=== PATIENT | female | born 1945 | race Caucasian/White ===

== ENCOUNTER → 2016-11-30 | Day surgery (SDC) | payer MEDICARE ==
[2016-07-26 11:45] VITALS: BP 103/58
[~2016-11-30] MED LIST: CHOL100014 PO; FERR325T58 PO; FURO20TA3 PO; HYDROmorphone 2 MG/ML VIAL IV PRN; IV RINGERS,LACTATED 1000ML 1,000 ML IV SCH; LACT10SO35 PO; LIDOCAINE 1% 1 ML SYRINGE. ID PRN; MORPHINE SULFATE 2 MG/ML DISP.SYRIN. IV PRN; MULT1TAB52 PO; OMEP40CA5; ONDANSETRON PF 4 MG/2 ML VIAL. IV PRN; POTA20TA4 PO; PROCHLORPERAZINE 10 MG/2 ML VIAL. IV PRN; SPIR25TA3 PO; SUCR1TAB; VITA100022 PO; fentaNYL PF VIAL 100 MCG/2 ML VIAL IV PRN
--- NOTE | 2016-11-30 10:30 | PDOC1 ---
HISTORY & PHYSICAL H&P Dahiana Cortez 1945 11/23/2016 02:50 PM 08/15 [employer] [facility] OUR PATIENTS COME FIRST [address] [place] [address] Ph. [phone] Patient: Dahiana Cortez Date of : 1945 Date: 11/23/2016 2:50 PM Visit Type: Office Visit This 71 year old female presents for Esophageal Ulcers. History of Present Illness: 1. Esophageal Ulcers Patient is here for followup for esophagal ulcers and duodenal ulcers. No complain. Has been taking medication regularly. No nausea or vomiting. No melena. INTAKE COMMENTS: Intake Comments: Nurse Note: the pt is here today for a follow-up for Esophageal ulcers, her last EGD was in July 2016. PROBLEM LIST: Problem Description Onset Date Chronic Notes Cirrhosis of liver 04/04/2014 Y Bilateral edema of lower extremity 04/01/2016 PAST MEDICAL/SURGICAL HISTORY (Detailed) Disease/disorder Onset Date Management Date Comments kne replacement hysterectomy EGD 04/07/2015 cirrhosis of liver rheumatic fever, childhood DIAGNOSTICS HISTORY: Test Ordered Interpretation Result completed EGD 02/17/2015 abnormal Imp: No evidence of any significant variceal dilation at present. Reflux esophagitis. Mild portal hypertensive gastropathy. 04/07/2015 EGD 04/01/2016 abnormal Imp: Schatzki's ring. Small hiatal hernia. Somewhat prominent esophageal venous structure not quite clinically evident varices at present. 04/12/[address] WITH Contrast 07/15/2016 abnormal Imp: Small bilateral pleural effusions. Mild volume loss at the left lung base likely reflects atelectasis. Pneumonia is not entirely excluded but is felt less likely. Cholelithiasis. 02/2016 EGD 07/15/2016 abnormal Imp: Non-Bleeding esophageal ulcers. LA grade C reflux esophagitis. Gastritis(bx). One non-bleeding duodenal ulcer with no stigmata of bleeding. BX: Chronic gastritis, mild. 07/26/2016 Test Ordered Ordering Comments Modifier EGD 02/17/2015 EGD 04/01/[address] WITH Contrast 07/15/2016 EGD 07/15/2016 Medications (Active): Started Medication Directions Instruction Stopped 11/23/2016 Aldactone 100 mg tablet take 1 tablet by ORAL route every day 10/19/2016 lactulose 20 gram/30 mL oral solution take 30 milliliter by oral route 3 times every day 11/23/2016 Lasix 20 mg tablet TAKE ONE TABLET BY MOUTH ONCE DAILY 11/23/2016 omeprazole 40 mg capsule,delayed release take 1 capsule by oral route every day before a meal 11/23/2016 sucralfate 1 gram tablet take 1 tablet by oral route 2 times every day on an empty stomach 1 hour before meals and at bedtime Allergies: Ingredient Reaction Medication Name Comment PENICILLINS REVIEW OF SYSTEMS System Neg/Pos Details Constitutional Negative Chills, fever, malaise and weight loss. ENMT Negative Sore throat. Eyes Negative Double vision. Respiratory Negative Dyspnea and wheezing. Cardio Negative Chest pain and irregular heartbeat/palpitations. GI Positive See HPI. GI Negative See HPI. Negative Dysuria and hematuria. Endocrine Negative Cold intolerance and heat intolerance. Psych Negative Anxiety. Integumentary Negative Hives and rash. MS Negative Joint pain. Jd/Lymph Negative Easy bleeding and easy bruising. Allergic/Immuno Negative Food allergies. VITAL SIGNS Time BP mm/Hg Pulse /min Resp /min Temp F Ht ft Ht in Ht cm Wt lb Wt kg BMI kg/ m2 BSA m2 O2 Sat% 3:49 PM 136/74 85 98.1 5.0 7.00 170.18 142.80 64.773 22.37 97 Time Measured by 3:49 PM Marisol Campos PHYSICAL EXAM: Exam Findings Details Constitutional Normal Well developed. Eyes Normal Conjunctiva - Right: Normal, Left: Normal. Sclera - Right: Normal, Left: Normal. Nasopharynx Normal Lips/teeth/gums - Normal. Neck Exam Normal Inspection - Normal. Thyroid gland - Normal. Respiratory Normal Inspection - Normal. Auscultation - Normal. Cardiovascular Normal Regular rate and rhythm. No murmurs, gallops, or rubs. Vascular Normal Pulses - Carotids: Normal, Femoral: Normal, Dorsalis pedis: Normal. Abdomen Normal Inspection - Normal. Anterior palpation - No guarding. No abdominal tenderness. No hepatic enlargement. No splenic enlargement. No hernia. No Ascites. Skin Normal Inspection - Normal. Extremity Normal No edema. Psychiatric Normal Oriented to time, place, person, and situation. Appropriate mood and effect. The patient was checked out at 3:49 PM by Marisol Campos. Assessment/Plan # Detail Type Description 1. Assessment Ulcer of esophagus without bleeding (K22.10). Patient Plan schedule EGD at Plan Orders Further diagnostic evaluations ordered today include(s) EGD to be performed today. She is to schedule a follow-up visit with Valery Heard MD upon completion of work-up 2. 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 Patient Plan Continue lactulose. Continue Lasix and Aldactone. Electronically signed by: Valery Heard MD 11/23/2016 04:32 PM Document generated by: Valery Heard 11/23/2016 04:32 PM Jennifer La MD, Family Practice; Dejon Lee MD Internal Medicine; Ketan Segundo MD, Internal Medicine; Radha Heard MD Internal Medicine; Valery Heard MD, Gastroenterology; Binh Rich MD, Rheumatology, S. Dino Hobson, Physical Medicine/Rehab JClark Fitzgerald APRN ------ 11/30/16 Patient seen and examined. No change in H*P VALERY HEARD MD Nov 30, 2016 10:30
== END | disposition home or self-care (01) ==
LOC: ENDOS 10:17
PROVIDERS: ATTEND Internal Medicine Gastroenterology
DX: Z53.9 Procedure and treatment not carried out, unspecified reason (principal)

== ENCOUNTER → 2016-12-28 | Day surgery (SDC) | payer MEDICARE ==
[~2016-12-28] MED LIST changes: -CHOL100014 PO; +CHOL10007 PO; -HYDROmorphone 2 MG/ML VIAL IV PRN; -LIDOCAINE 1% 1 ML SYRINGE. ID PRN; +LIDOCAINE 2% PF Vial for OR 5 ML VIAL. ONE; -MORPHINE SULFATE 2 MG/ML DISP.SYRIN. IV PRN; -ONDANSETRON PF 4 MG/2 ML VIAL. IV PRN; -PROCHLORPERAZINE 10 MG/2 ML VIAL. IV PRN; +PROPOFOL 20 ML IV ONE; -VITA100022 PO; +VITA10004 PO; -fentaNYL PF VIAL 100 MCG/2 ML VIAL IV PRN
--- NOTE | 2016-12-28 08:43 | PDOC1 ---
HISTORY & PHYSICAL H&P Dahiana Cortez 1945 11/23/2016 02:50 PM 08/15 [employer] [facility] OUR PATIENTS COME FIRST [address] [place] [address] Ph. [phone] Patient: Dahiana Cortez Date of : 1945 Date: 11/23/2016 2:50 PM Visit Type: Office Visit This 71 year old female presents for Esophageal Ulcers. History of Present Illness: 1. Esophageal Ulcers Patient is here for followup for esophagal ulcers and duodenal ulcers. No complain. Has been taking medication regularly. No nausea or vomiting. No melena. INTAKE COMMENTS: Intake Comments: Nurse Note: the pt is here today for a follow-up for Esophageal ulcers, her last EGD was in July 2016. PROBLEM LIST: Problem Description Onset Date Chronic Notes Cirrhosis of liver 04/04/2014 Y Bilateral edema of lower extremity 04/01/2016 PAST MEDICAL/SURGICAL HISTORY (Detailed) Disease/disorder Onset Date Management Date Comments kne replacement hysterectomy EGD 04/07/2015 cirrhosis of liver rheumatic fever, childhood DIAGNOSTICS HISTORY: Test Ordered Interpretation Result completed EGD 02/17/2015 abnormal Imp: No evidence of any significant variceal dilation at present. Reflux esophagitis. Mild portal hypertensive gastropathy. 04/07/2015 EGD 04/01/2016 abnormal Imp: Schatzki's ring. Small hiatal hernia. Somewhat prominent esophageal venous structure not quite clinically evident varices at present. 04/12/[address] WITH Contrast 07/15/2016 abnormal Imp: Small bilateral pleural effusions. Mild volume loss at the left lung base likely reflects atelectasis. Pneumonia is not entirely excluded but is felt less likely. Cholelithiasis. 02/2016 EGD 07/15/2016 abnormal Imp: Non-Bleeding esophageal ulcers. LA grade C reflux esophagitis. Gastritis(bx). One non-bleeding duodenal ulcer with no stigmata of bleeding. BX: Chronic gastritis, mild. 07/26/2016 Test Ordered Ordering Comments Modifier EGD 02/17/2015 EGD 04/01/[address] WITH Contrast 07/15/2016 EGD 07/15/2016 Medications (Active): Started Medication Directions Instruction Stopped 11/23/2016 Aldactone 100 mg tablet take 1 tablet by ORAL route every day 10/19/2016 lactulose 20 gram/30 mL oral solution take 30 milliliter by oral route 3 times every day 11/23/2016 Lasix 20 mg tablet TAKE ONE TABLET BY MOUTH ONCE DAILY 11/23/2016 omeprazole 40 mg capsule,delayed release take 1 capsule by oral route every day before a meal 11/23/2016 sucralfate 1 gram tablet take 1 tablet by oral route 2 times every day on an empty stomach 1 hour before meals and at bedtime Allergies: Ingredient Reaction Medication Name Comment PENICILLINS REVIEW OF SYSTEMS System Neg/Pos Details Constitutional Negative Chills, fever, malaise and weight loss. ENMT Negative Sore throat. Eyes Negative Double vision. Respiratory Negative Dyspnea and wheezing. Cardio Negative Chest pain and irregular heartbeat/palpitations. GI Positive See HPI. GI Negative See HPI. Negative Dysuria and hematuria. Endocrine Negative Cold intolerance and heat intolerance. Psych Negative Anxiety. Integumentary Negative Hives and rash. MS Negative Joint pain. Jd/Lymph Negative Easy bleeding and easy bruising. Allergic/Immuno Negative Food allergies. VITAL SIGNS Time BP mm/Hg Pulse /min Resp /min Temp F Ht ft Ht in Ht cm Wt lb Wt kg BMI kg/ m2 BSA m2 O2 Sat% 3:49 PM 136/74 85 98.1 5.0 7.00 170.18 142.80 64.773 22.37 97 Time Measured by 3:49 PM Marisol Campos PHYSICAL EXAM: Exam Findings Details Constitutional Normal Well developed. Eyes Normal Conjunctiva - Right: Normal, Left: Normal. Sclera - Right: Normal, Left: Normal. Nasopharynx Normal Lips/teeth/gums - Normal. Neck Exam Normal Inspection - Normal. Thyroid gland - Normal. Respiratory Normal Inspection - Normal. Auscultation - Normal. Cardiovascular Normal Regular rate and rhythm. No murmurs, gallops, or rubs. Vascular Normal Pulses - Carotids: Normal, Femoral: Normal, Dorsalis pedis: Normal. Abdomen Normal Inspection - Normal. Anterior palpation - No guarding. No abdominal tenderness. No hepatic enlargement. No splenic enlargement. No hernia. No Ascites. Skin Normal Inspection - Normal. Extremity Normal No edema. Psychiatric Normal Oriented to time, place, person, and situation. Appropriate mood and effect. The patient was checked out at 3:49 PM by Marisol Campos. Assessment/Plan # Detail Type Description 1. Assessment Ulcer of esophagus without bleeding (K22.10). Patient Plan schedule EGD at Plan Orders Further diagnostic evaluations ordered today include(s) EGD to be performed today. She is to schedule a follow-up visit with Valery Heard MD upon completion of work-up 2. 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 Patient Plan Continue lactulose. Continue Lasix and Aldactone. Electronically signed by: Valery Heard MD 11/23/2016 04:32 PM Document generated by: Valery Heard 11/23/2016 04:32 PM Jennifer La MD, Family Practice; Dejon Lee MD Internal Medicine; Ketan Segundo MD, Internal Medicine; Radha Heard MD Internal Medicine; Valery Heard MD, Gastroenterology; Binh Rich MD, Rheumatology, S. Dino Hobson, Physical Medicine/Rehab JClark Fitzgerald APRN ------ 12/28/16 Patient seen and examined. No change in H&P. VALERY HEARD MD December 28, 2016 08:43
--- NOTE | 2016-12-28 08:48 | PDOC4 ---
GI OP Report - Dr. Carrillo Date/Time DATE: 12/28/16 TIME: 08:47 Attending Physician Vicente Carrillo MD Referring Physician Indications Follow-up of reflux esophagitis, Follow-up of chronic duodenal ulcer Pre-Op See the Anesthesia note for documentation of the administered medications Procedures Upper GI endoscopy Findings - Small hiatus hernia. - Normal stomach. - Normal examined duodenum. - No specimens collected. Plan - Discharge patient to home. - Patient has a contact number available for emergencies. The signs and symptoms of potential delayed complications were discussed with the patient. Return to normal activities tomorrow. Written discharge instructions were provided to the patient. - Resume regular diet. - Continue present medications. - Return to my office as needed. VICENTE CARRILLO MD December 28, 2016 08:48
[2016-12-28 09:15] VITALS: BP 112/58
== END | disposition home or self-care (01) ==
LOC: ENDOS 07:16
PROVIDERS: ATTEND Internal Medicine Gastroenterology
DX: K21.0 Gastro-esophageal reflux disease with esophagitis (principal); K26.7 Chronic duodenal ulcer without hemorrhage or perforation; K44.9 Diaphragmatic hernia without obstruction or gangrene; K74.60 Unspecified cirrhosis of liver; D64.9 Anemia, unspecified; Z90.710 Acquired absence of both cervix and uterus; Z96.651 Presence of right artificial knee joint
CPT/HCPCS: 43235; J2704